=== PATIENT | male | born 1955 | race Caucasian/White ===

== ENCOUNTER 2021-05-24 23:08 | Emergency (ER) | payer OTHER, MEDICAID ==
[~2021-05-24] VITALS: Ht 170.2 cm; Wt 72.6 kg
[2021-05-24 23:32] VITALS: BP_SYST 121
--- NOTE | 2021-05-24 23:32 | NUR ---
Patient triaged and placed in AMBULANCE BAY. VSS and patient appears in no acute distress at this time. Accompanied by BLS, awaiting available bed, and MD notified of need for MSE.
--- NOTE | 2021-05-25 01:07 | NUR ---
Patient to ER bed 07 to gown for evaluation. Side rails up. Report given to MARGARITA Reddy
--- NOTE | 2021-05-25 01:08 | NUR ---
Came in ER per gurarnav brought by [facility] Paramedics from [facility] this 65 year old male, AAOX4, breathing spontaneously at room air, not in distress noted. With chief compliants of generalized body aches/ malaise, fatigue for 3days, denies flu symptoms. Known with SCHIZOPHRENIA, ANEMIA, MILD INTERLLECTUAL DISABILITIES, no surgical history, no known allergy
--- NOTE | 2021-05-25 01:30 | NUR ---
Patient transported to radiology via wheelchair in stable condition , accompanied by die maintenance technician.
[2021-05-25 01:31] LABS: BASOPHILS # (AUTO) 0.2 K/uL (0.0-0.2); BASOPHILS % (AUTO) 1.4 % (0.0-2.0); HEMATOCRIT 36.6 % (36-54); HEMOGLOBIN 12.2 g/dL (14.0-18.0); LYMPHOCYTES # (AUTO) 2.2 K/uL (1.0-5.5); LYMPHOCYTES % (AUTO) 19.2 % (20.5-51.5); MEAN CORPUSCULAR HEMOGLOBIN 29 pg (27-31); MEAN CORPUSCULAR HGB CONC 33 % (32-36); MEAN CORPUSCULAR VOLUME 87 fL (79.0-98.0); MONOCYTES # (AUTO) 1.2 K/uL (0.0-1.0); MONOCYTES % (AUTO) 10.1 % (1.7-9.3); NEUTROPHILS # (AUTO) 8.1 K/uL (1.8-7.7); NEUTROPHILS % (AUTO) 69.3 % (40.0-70.0); PLATELET COUNT (AUTO) 473 K/uL (130-430); RED BLOOD CELL COUNT(AUTO) 4.21 MIL/uL (4.2-6.2); RED CELL DISTRIBUTION WIDTH 14.7 % (9.0-15.0); WHITE BLOOD COUNT (AUTO) 11.7 K/uL (4.8-10.8)
[2021-05-25 01:37] LABS: CALCIUM 9.1 mg/dL (8.4-11.0); CREATININE 0.94 mg/dL (0.55-1.30)
[2021-05-25 01:41] LABS: ALBUMIN 3.7 g/dL (3.4-4.8); TOTAL BILIRUBIN 0.6 mg/dL (0.0-1.0)
--- NOTE | 2021-05-25 01:41 | NUR ---
Returned from radiology, back to [facility].
[2021-05-25 02:25] LABS: BILIRUBIN,URINE NEGATIVE (NEGATIVE); BLOOD, URINE NEGATIVE (NEGATIVE); CLARITY/URINE CLEAR (CLEAR); COLOR,URINE YELLOW (YELLOW); GLUCOSE,URINE NEGATIVE (NEGATIVE); KETONES,URINE 2+ (NEGATIVE); LEUKOCYTE ESTERASE ,URINE NEGATIVE (NEGATIVE); NITRITE, URINE NEGATIVE (NEGATIVE); PROTEIN URINE NEGATIVE (NEGATIVE)
[2021-05-25] MEDS ORDERED: POLY17PO4 PO (03:43)
[2021-05-25] MEDS ORDERED: DOCU-144 PO (03:43)
--- NOTE | 2021-05-25 03:56 | NUR ---
# 20 gauge angiocath placed to LAC. Use of asceptic technique. Opsite placed over site. Blood return noted. Blood for lab drawn from site. Flushed with 10 cc of normal saline. No evidence of infiltration noted. Patient tolerated well.
[2021-05-25] MEDS: NACL 0.9% 1,000 ML IV ONE ×2 (04:08)
--- NOTE | 2021-05-25 04:26 | NUR ---
Called [facility] and spoke with Meera about pt status and updated them on pt discharge and transport back to facility. ETA on transport is 0600 with [facility].
--- NOTE | 2021-05-25 05:00 | NUR ---
Pt ambulated to restroom.
[2021-05-25] MEDS: ONDANSETRON HCL 4 MG/2 ML VIAL IVP ONE (05:33)
[2021-05-25] MEDS: MORPHINE 4 MG INJ. 4 MG/ML VIAL IVP ONE (05:34)
[2021-05-25] MEDS: MAGNESIUM CITRATE 300 ML ORAL SOLUTION PO ONE (05:34)
--- NOTE | 2021-05-25 05:45 | NUR ---
Covid swab collected and sent to lab.
--- NOTE | 2021-05-25 05:45 | NUR ---
Pt resting in [facility] VSS. No distress noted.
[2021-05-25 06:51] VITALS: BP_SYST 129
--- NOTE | 2021-05-25 06:52 | NUR ---
Patient given written and verbal discharge instructions and verbalizes understanding. ER MD discussed with patient the results and treatment provided. Patient in stable condition. ID arm band removed. IV catheter removed intact and dressing applied, no active bleeding. Rx of Colace and Miralax given. Patient educated on pain management and to follow up with PMD. Pain Scale 2/10. Opportunity for questions provided and answered. Medication side effect fact sheet provided.
--- NOTE | 2021-05-25 06:52 | NUR ---
Pt being picked up by [facility] and transported back to his facility of [facility]. VSS
== END 2021-05-25 06:52 ==
LOC: SED 23:08
DX: K59.00 Constipation, unspecified (principal); G89.29 Other chronic pain; R10.33 Periumbilical pain; Z20.822 Contact with and (suspected) exposure to COVID-19
CPT/HCPCS: 36415; 74021; 80053; 81003; 85025; 87426; 96361; 96374; 96375; 99285; J2270; J2405; J7030